=== PATIENT | female | born 1975 | race Caucasian/White ===

== ENCOUNTER 2021-04-11 19:09 | Emergency (ER) | payer OTHER, SELFPAY ==
[2021-04-11 19:29] VITALS: BP 136/69; PULSE 90; RESP 16; TEMP 36.4; O2SAT 97; BMI 29.0
--- NOTE | 2021-04-11 21:37 | ED.WOUNDLAC ---
HPI - Wound/Laceration General Chief Complaint: Wound/Laceration Stated Complaint: Finger lac Time Seen by Provider: 04/11/21 21:17 Source: patient and family Mode of arrival: ambulatory Limitations: no limitations History of Present Illness HPI narrative: 46-year-old female presenting to the ED with laceration to her left hand thumb that occurred prior to arrival while she was cutting chicken that was already cooked with knife. Denies any other injury complaints or concerns at this time. Denies any thoughts of foreign bodies. Reports that she is not up-to-date on tetanus Onset (ago): minute(s) (Prior to arrival) Extremity Location: left: hand (Thumb) Place: home Patient tetanus UTD: No Context: accidental Associated symptoms: none Treatments prior to arrival: cold therapy Related Data Previous Rx's Medication Instructions Recorded acetaminophen 500 mg tablet 1,000 mg PO QID PRN #14 tab 04/11/21 (Tylenol Extra Strength) cephalexin 500 mg capsule 500 mg PO Q6H 10 Days #40 cap 04/11/21 ibuprofen 800 mg tablet 800 mg PO Q8H PRN #14 tab 04/11/21 Allergies Allergy/AdvReac Type Severity Reaction Status Date / Time sulfamethoxazole Allergy Intermediate HIVES Verified 04/11/21 19:32 [From BACTRIM] trimethoprim [From BACTRIM] Allergy Intermediate HIVES Verified 04/11/21 19:32 Review of Systems Review of Systems: Constitutional : No Fever, No Chills, Cardiovascular : No Chest Pain, No SOB Respiratory : No Dyspnea Gastrointestinal : No abdominal pain Musculoskeletal : No Joint Swelling Skin : positive skin laceration, No Foreign bodies, No rash, No surrounding erythema Neuro : No Weakness, No Numbness/tingling Psych : No SI/HI/thoughts of self injury Yes all other systems are reviewed and are negative [facility] Past Medical History Attestation statement: The following information was validated with the patient. Social History Social History Advance Directives: No Advance Directives Information Provided: No Patient : No Physical Exam Vital Signs: Vital Signs: Last Vital Signs Temp 97.6 F 04/11/21 19:29 Pulse 90 04/11/21 19:29 Resp 16 04/11/21 19:29 BP 136/69 04/11/21 19:29 Pulse Ox 97 04/11/21 19:29 Body Mass Index 29.0 vital signs have been reviewed as normal and appeared to be correct. Blood pressure normal Heart rate normal. Respiration rate normal. Temperature normal. Oxygen saturation normal. Appearance: Alert. Oriented X3. No acute distress. Head: Normal external exam. Normocephalic. Atraumatic. Eyes: PERRLA. EOMI. Conjunctiva and sclera normal. Eyelids normal. ENT: Pharynx normal. Uvula midline. Moist mucous membranes. Neck: Normal inspection. Neck supple. FROM. CVS: Normal heart rate and rhythm. Respiratory: No respiratory distress. Painless inspiration. Skin: Skin warm and dry. Normal skin color. Normal skin turgor. For to left hand distal aspect some patient has a superficial 1 cm laceration no active bleeding or foreign bodies noted. No additional No rashes/lesions/lacerations noted. Extremities: Extremities exhibit normal range of motion. Extremities nontender. Neuro: Oriented X 3. No motor deficit. No sensory deficit. Reflexes normal. Normal steady gait. No focal neuro deficits noted. Vascular: + radial pulses/+ 2 distal pedal pulses/+2 dorsalis pedis b/l. Normal cap refill. No cyanosis noted to upper extremity nails and lower extremity toes nails. Course Course Course Narrative: 46-year-old female presenting to the ED with laceration to her left hand thumb that occurred prior to arrival while she was cutting chicken that was already cooked with knife. Denies any other injury complaints or concerns at this time. Denies any thoughts of foreign bodies. Reports that she is not up-to-date on tetanus Patient now status post laceration repair with 3 sutures placed. Patient tolerated procedure well. No complications. Tetanus updated at this time. Will DC home with antibiotics instructions return in 10 days for suture removal and to return sooner if any new or worsening symptoms. Patient understands agrees with this plan. MDM - Wound/Laceration Medical Records Attestation: I reviewed the patient's medical records. Procedures Laceration Laceration 1: Site: hand (left thumb) Side (If applicable): left Size (cm): 1 Description: linear Depth: simple, single layer Local Anesthetic: lidocaine 1% Amount of anesthesia used (mL): 2 Pre-repair: wound explored, irrigated extensively and deep structures intact Skin layer closed with: nylon Size (cm): 5-0 Number of sutures: 3 Technique: simple, interrupted Discharge Plan Discharge Clinical Impression: Laceration Patient Disposition: Home, Self-Care Instructions: Finger Laceration (ED) Prescriptions: New cephalexin 500 mg capsule 500 mg PO Q6H 10 Days Qty: 40 RF: 0 ibuprofen 800 mg tablet 800 mg PO Q8H PRN (Reason: pain) Qty: 14 RF: 0 acetaminophen [Tylenol Extra Strength] 500 mg tablet 1,000 mg PO QID PRN (Reason: fever or pain) Qty: 14 RF: 0 Referrals: Xena Kim PA [Emergency Midlevel Provider] - 10 days (You should return to this ER any other ER any urgent care or your primary care provider within 7-10 days 1st your stitches to be removed) Kuldip Killian MD [Primary Care Provider] - 10 days (Suture removal) Stand Alone Forms: Work/School Release Print Language: Tuvaluan
[2021-04-11] MEDS: Lidocaine HCl 1 % MPF 5 ML VIAL SUBCUT (21:41)
[2021-04-11] MEDS: Diphth,Pertus(ACell),Tet Adult 0.5 ML SYRINGE IM (21:41)
== END 2021-04-11 22:14 | disposition home or self-care (01) ==
PROVIDERS: Emergency Provider Emergency Medicine; PCP Internal Medicine
DX: S61.012A Laceration without foreign body of left thumb without damage to nail, initial encounter (principal); W26.0XXA Contact with knife, initial encounter; Y93.G3 Activity, cooking and baking; Y92.009 Unspecified place in unspecified non-institutional (private) residence as the place of occurrence of the external cause; Y99.9 Unspecified external cause status
CPT/HCPCS: 12001; 90471; 90715; 99284